=== PATIENT | female | born 1945 ===

== ENCOUNTER 2021-11-13 06:58 | Day surgery (SDC) | payer OTHER | END 2021-11-13 13:15 | disposition home or self-care (01) | LOC: AMB-ENDOS 06:58 → CIR.AMB 13:15 → AMB-ENDOS 13:15 | PROVIDERS: ATTEND Colon & Rectal Surgery | DX: R15.9 Full incontinence of feces (principal); K64.4 Residual hemorrhoidal skin tags; E03.9 Hypothyroidism, unspecified ==